=== PATIENT | female | born 1970 | race Two or more races ===

== ENCOUNTER 2017-01-28 18:04 | Emergency (ER) | payer BC ==
[~2017-01-28] VITALS: Ht 152.4 cm; Wt 56.7 kg
[2017-01-28 18:28] VITALS: BP 127/79
[2017-01-28] MEDS ORDERED: ALBUTEROL FS 2.5 MG/3 ML VIAL.NEB ONE (18:56)
[2017-01-28] MEDS ORDERED: IPRATROPIUM NEB FS 0.5 MG/2.5 ML AMPUL.NEB ONE (18:56)
[2017-01-28] MEDS ORDERED: IPRATROPIUM NEB FS 0.5 MG/2.5 ML AMPUL.NEB NEB ONE (19:00)
[2017-01-28] MEDS ORDERED: ALBUTEROL FS 2.5 MG/3 ML VIAL.NEB NEB ONE (19:00)
--- NOTE | 2017-01-28 19:00 | NUR ---
RT PROVIDING BREATHING TREATMENT
[2017-01-28] MEDS ORDERED: ACETAMINOPHEN ES 500 MG TABLET ONE (19:11)
[2017-01-28] MEDS: ACETAMINOPHEN 325 MG TABLET PO ONE ×2 (19:13→19:15)
--- NOTE | 2017-01-28 19:15 | NUR ---
PT REFUSED MEDS. RISK AND BENEFITS EXPLAINED X3. PT STRONGLY REFUSED. PT STATES "I FEEL BETTER"
== END 2017-01-28 19:17 | disposition home or self-care (01) ==
LOC: ER 18:06
DX: J45.909 Unspecified asthma, uncomplicated (principal); R51 Headache; Z88.8 Allergy status to other drugs, medicaments and biological substances
CPT/HCPCS: A4606; Z7610